=== PATIENT | male | born 1975 | race Caucasian/White ===

== ENCOUNTER 2016-09-26 13:20 | Emergency (ER) | payer OTHER ==
[2016-09-26 13:23] VITALS: BP 142/63; PULSE 79; RESP 15; TEMP 97.8; O2SAT 98
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
[2016-09-26] MEDS ORDERED: IBUPROFEN 800 MG TAB PO ONE (14:30)
[2016-09-26] MEDS ORDERED: METHOCARBAMOL 500 MG TAB PO ONE (14:30)
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
[2016-09-26] MEDS ORDERED: IBUP800T23 PO (15:26)
[2016-09-26] MEDS ORDERED: ROBA500T PO (15:26)
[2016-09-26 15:33] VITALS: BP 140/61
== END 2016-09-26 15:41 | disposition home or self-care (01) ==
LOC: NEPD 13:20
DX: S80.11XA Contusion of right lower leg, initial encounter (principal); S29.012A Strain of muscle and tendon of back wall of thorax, initial encounter; Z79.899 Other long term (current) drug therapy; F17.290 Nicotine dependence, other tobacco product, uncomplicated; V43.52XA Car driver injured in collision with other type car in traffic accident, initial encounter
CPT/HCPCS: 73590; 99283